=== PATIENT | female | born 1965 | race Caucasian/White ===

== ENCOUNTER → 2018-01-02 | Outpatient (CLI) | payer OTHER | LOC: M.RAD 15:00 | DX: R07.89 Other chest pain (principal); R06.02 Shortness of breath; I10 Essential (primary) hypertension ==

== ENCOUNTER 2018-11-13 16:18 | Emergency (ER) | payer OTHER ==
[~2018-11-13] VITALS: Ht 160 cm; Wt 57.6 kg
[2018-11-13 17:11] LABS: HEMATOCRIT 41.3 % (37.0-47.0); HEMOGLOBIN 14.2 gm/dL (12.0-15.0); MCH 31.9 pg (26.0-34.0); MCHC 34.4 g/dL (28.0-37.0); MCV 92.8 fL (80.0-100.0); PLATELET COUNT* 193 thou/uL (150-400); RBC 4.45 mil/uL (4.20-5.00); RDW-CV 13.4 % (10.5-14.5); WBC 3.7 thou/uL (4.0-11.0)
[2018-11-13 17:28] LABS: AMP/METHAMP Negative (Negative); BARBITURATES Negative (Negative); BENZODIAZEPINES Negative (Negative); COCAINE Negative (Negative); METHADONE Negative (Negative); OPIATES Negative (Negative); PCP Negative (Negative); THC Negative (Negative)
[2018-11-13 17:37] LABS: ALBUMIN 4.3 g/dL (3.4-5.0); ALKALINE PHOSPHATASE 97 U/L (46-116); ANION GAP 11 mmol/L (7-16); BUN 12 mg/dL (7-18); CALCIUM 9.2 mg/dL (8.5-10.1); CHLORIDE 99 mmol/L (98-107); CO2 29 mmol/L (21-32); CREATININE 0.6 mg/dL (0.6-1.3); GLUCOSE 124 mg/dL (70-99); POTASSIUM 3.6 mmol/L (3.5-5.1); SGOT 44 U/L (15-37); SGPT 40 U/L (30-65); SODIUM 139 mmol/L (136-145); TOTAL BILIRUBIN 0.6 mg/dL (<0.1-1.0); TOTAL PROTEIN 7.8 g/dL (6.4-8.2); TROPONIN-I LEVEL <0.06 ng/mL (<0.06)
[2018-11-13 17:50] LABS: ABSOLUTE LYMPHOCYTES 0.1 thou/uL (0.8-5.3); ABSOLUTE MONOCYTES 0.1 thou/uL (0.0-1.2); ABSOLUTE NEUTROPHILS 3.5 thou/uL (1.6-8.1); PLATELET ESTIMATE ADEQUATE
[2018-11-13] MEDS ORDERED: BUTALB-APAP-CA1 EACH PO (18:19)
[2018-11-13] MEDS ORDERED: ZOFRAN ODT4 MG PO (18:19)
[2018-11-13 18:22] VITALS: BP 147/93
--- NOTE | 2018-11-14 13:38 | EKG ---
[place] [address] ELECTROCARDIOGRAM REPORT Name: SAMARIA NORIEGA Room: [facility]#: [id number] Admission: 11/13/18 Attend Phys: Discharge: 11/13/18 Date of : 63 Report #: [id number] THIS REPORT FOR: //name// [facility] ED Test Date: 2018-11-13 Test Time: 16:55:23 Pat Name: SAMARIA NORIEGA Department: Room: Gender: F Line Ordering Clinician: Barrington CABRERA : 1965 Requested By: Trista Colunga Order Number: [id number] MD: Ilya Barbosa Measurements Intervals [place] Rate: 76 P: 46 WA: 171 QRS: -44 QRSD: 98 T: 50 QT: 476 QTc: 536 Interpretive Statements Sinus rhythm Abnormal R-wave progression, late transition Inferior infarct, old Prolonged QT interval No previous ECG available for comparison Electronically Signed On 11-14-2018 13:38:00 CDT by Ilya Barbosa [email or web address] <ELECTRONICALLY SIGNED> By: Ilya Barbosa MD, [facility] 11/14/18 1338 [id number] 1655 Ilya Barbosa MD, [facility] /EPI
== END 2018-11-13 18:22 | disposition home or self-care (01) ==
LOC: M.ERS 16:18
PROVIDERS: Personal Emergency Response Attendant
DX: R11.2 Nausea with vomiting, unspecified (principal); R51 Headache; Z90.710 Acquired absence of both cervix and uterus